=== PATIENT | female | born 1990 | race Two or more races ===

== ENCOUNTER 2021-03-27 04:17 | Emergency (ER) | payer SELFPAY ==
[~2021-03-27] VITALS: Ht 152.4 cm; Wt 73.0 kg
[~2021-03-27 04:17] MED LIST: PRENATAL VIT
[2021-03-27 04:55] VITALS: BP 122/84
[2021-03-27] MEDS ORDERED: METHOCARBAMOL 500MG TABLET PO ONE (05:15)
[2021-03-27] MEDS ORDERED: KETOROLAC 60MG/2ML VIAL IM ONE (05:15)
[2021-03-27] MEDS ORDERED: METH500T6 MT (06:07)
[2021-03-27] MEDS ORDERED: NAPR-681 MT (06:07)
== END 2021-03-27 06:41 | disposition home or self-care (01) ==
LOC: ER 04:17
DX: S16.1XXA Strain of muscle, fascia and tendon at neck level, initial encounter (principal); R51.9 Headache, unspecified; V43.62XA Car passenger injured in collision with other type car in traffic accident, initial encounter; Y93.9 Activity, unspecified; Y92.410 Unspecified street and highway as the place of occurrence of the external cause; Z98.84 Bariatric surgery status; Z87.442 Personal history of urinary calculi; Z98.890 Other specified postprocedural states
CPT/HCPCS: 73502; 81025; 96372; 99283; J1885